=== PATIENT | female | born 2000 | race Caucasian/White ===

== ENCOUNTER → 2019-01-21 | Outpatient (CLI) | payer OTHER ==
--- NOTE | 2019-01-21 11:17 | 2DMMODE ---
[facility] [place] [address] 2 D/M-MODE ECHOCARDIOGRAM Name: DELICIA FUENTES Room #: REG [facility]#: [id number] ������������� Admission: 01/21/19 ������������� Attend Phys: Noel Muñoz, Discharge: ��� ������������� ��� Date of : 89 Date of Service: 01/21/19 1117 �� Report #: [id number] �������� ��������������������������������������������[id number] THIS REPORT FOR: //name// APPROVED REPORT Study performed: 01/21/2019 10:25:55 EXAM: Comprehensive 2D, Doppler, and color-flow Echocardiogram Patient Location: Out-Patient Status: routine BSA: 1.50 HR: 61 bpm Rhythm: NSR Other Information Study Quality: Good/low parasternal window. Indications Palpitaions. History of VSD. 2D Dimensions RVDd: 30.48 mm IVSd: 6.21 (7-11mm) LVOT Diam: 19.51 (18-24mm) LVDd: 38.40 mm PWd: 6.41 (7-11mm) LVDs: 27.07 (25-40mm) Aortic Root: 23.75 mm Volumes Left Atrial Volume (Systole) Single Plane 4CH: 35.14 mL Single Plane 2CH: 30.24 mL LA ESV Index: 24.00 mL/m2 Aortic Valve AoV Peak Brooks.: 1.41 m/s AO Peak Gr.: 7.99 mmHg LVOT Max P.95 mmHg LVOT Max V: 0.99 m/s FATOU Vmax: 2.10 cm2 Mitral Valve E/A Ratio: 3.1 MV Decel. Time: 167.09 ms MV E Max Brooks.: 1.07 m/s [facility] [address] [place] [address] 2 D/M-MODE ECHOCARDIOGRAM Name: DELICIA FUENTES Room #: [facility]#: [id number] ������������� Admission: 01/21/19 ������������� Attend Phys: Noel Muñoz, Discharge: ��� ������������� ��� Date of : 89 Date of Service: 01/21/19 1117 �� Report #: [id number] �������� ��������������������������������������������[id number] MV A Brooks.: 0.34 m/s MV PHT: 48.46 ms IVRT: 64.59 ms Pulmonary Valve PV Peak Brooks.: 0.94 m/s PV Peak Gr.: 3.53 mmHg Pulmonary Vein P Vein S: 0.59 m/s P Vein D: 0.51 m/s P Vein S/D Ratio: 1.16 Tricuspid Valve TR Peak Brooks.: 2.28 m/s RAP Estimate: 5.00 mmHg TR Peak Gr.: 20.72 mmHg PA Pressure: 26.00 mmHg Left Ventricle The left ventricle is normal size. There is normal LV segmental wall motion. There is normal left ventricular wall thickness. Left ventricular systolic function is normal. LVEF is 55-60%. The left ventricular diastolic function is normal. Right Ventricle The right ventricle is normal size. The right ventricular systolic function is normal. Atria The left atrium size is normal. The right atrium size is normal. Aortic Valve The aortic valve is normal in structure. No aortic regurgitation is present. There is no aortic valvular stenosis. Mitral Valve The mitral valve is normal in structure. No mitral regurgitation. No evidence of mitral valve stenosis. Tricuspid Valve The tricuspid valve is normal in structure. Mild tricuspid regurgitation. Estimated PAP is 25 mmHg. Pulmonic Valve The pulmonary valve is normal in structure. There is no pulmonic valvular regurgitation. [facility] [address] [place] [address] 2 D/M-MODE ECHOCARDIOGRAM Name: GINADELICIA Room #: REG [facility]#: [id number] ������������� Admission: 01/21/19 ������������� Attend Phys: Noel Muñoz, Discharge: ��� ������������� ��� Date of : 89 Date of Service: 01/21/19 1117 �� Report #: [id number] �������� ��������������������������������������������[id number] Great Vessels The aortic root is normal in size. The ascending aorta is normal in size. IVC is normal in size and collapses >50% with inspiration. Pericardium There is no pericardial effusion. <Conclusion> 1. Normal echocardiogram with Doppler. EF 60% 2. Pulmonary artery pressure of 25mmHg 3. No pericardial effusion ��������������������������������������������� <ELECTRONICALLY SIGNED> ���������������������������������������� By: Noel Muñoz MD, [facility] ��������������������������������������������� 01/21/19 1117 16 16 Noel Muñoz MD, [facility] /INF
--- NOTE | 2019-01-21 16:01 | TST ---
[facility] Darron Gonzalez [place] [address] TREADMILL STRESS TEST Name: FUENTESDELICIA Room #: REG [facility]#: [id number] ������������� Admission: 01/21/19 ������������� Attend Phys: Noel Muñoz, Discharge: ��� ������������� ��� Date of : 89 Date of Service: 01/21/19 1601 �� Report #: [id number] �������� ��������������������������������������������[id number] THIS REPORT FOR: //name// APPROVED REPORT Patient Location: Out-Patient Room #: Stress Nurse: Dee Yen RN The patient exercised according to the JEREMIAH protocol for 9 mins 46 seconds; achieving a work level of 11.3 METS. The resting heart rate of 82 bpm raven to a maximum heart rate of 173 bpm. This value represent 86% of the maximal, age-predicted heart rate. The resting blood pressure of 116/64 mmHg, raven to a maximum blood pressure of 116/64 mmHg. The exercise test was stopped due to maximal effort. Resting EKG: Sinus rhythm, normal tracing Stress EKG: No dysrhythmias. No diagnostic ischemic electrocardiographic changes. Conclusion 1. Maximal treadmill exercise study negative for exercise-induced ischemia. 2. No dysrhythmias. No diagnostic ischemic or echocardiographic changes. 3. The study was associated with good exercise capacity (11.3 METS) ��������������������������������������������� <ELECTRONICALLY SIGNED> ���������������������������������������� By: Noel Muñoz MD, FACC ��������������������������������������������� 01/21/19 1601 00 00 Noel Muñoz MD, [facility] /INF
== END ==
LOC: CV 09:37
DX: I07.1 Rheumatic tricuspid insufficiency (principal); Z82.49 Family history of ischemic heart disease and other diseases of the circulatory system